=== PATIENT | female | born 1985 | race Caucasian/White ===

== ENCOUNTER 2017-06-25 09:15 | Emergency (ER) | payer BC, OTHER ==
[2017-06-25 10:57] LABS: Basophils % (Auto) 0.5 % (0.0-1.8); Eosinophils # (Auto) 0.1 K/mm3 (0.0-0.4); Eosinophils % (Auto) 1.7 % (0.0-4.3); Hemoglobin 12.6 gm/dl (10.1-14.3); Lymphocytes # (Auto) 1.9 K/mm3 (1.2-5.4); Mean Corpuscular HGB Conc 33 % (30-34); Mean Corpuscular Hemoglobin 28 pg (28-32); Mean Corpuscular Volume 84 fl (79-97); Monocytes # (Auto) 0.6 K/mm3 (0.0-0.8); Monocytes % (Auto) 7.4 % (0.0-7.3); Platelet Count 324 K/mm3 (140-440); Red Blood Count 4.52 M/mm3 (3.65-5.03); Red Cell Distribution Width 14.1 % (13.2-15.2)
[2017-06-25 11:09] LABS: Alanine Aminotransferase 11 units/L (7-56); BUN/Creatinine Ratio 18; Blood Urea Nitrogen 9 mg/dL (7-17); Calcium 9.1 mg/dL (8.4-10.2); Hemolysis Index 2; Lipase 17 units/L (13-60)
[2017-06-25 11:58] LABS: HCG Qualitative,Urine Negative (Negative)
[2017-06-25 12:00] LABS: Bilirubin,Urine NEG (Negative); Blood,Urine SM (Negative); Color,Urine Straw (Yellow); Mucus,Urine FEW /HPF; Protein,Urine <15 mg/dL mg/dL (Negative); Urobilinogen,Urine < 2.0 mg/dL (<2.0)
[2017-06-25 16:03] VITALS: BP 162/99
== END 2017-06-25 20:06 | disposition left against medical advice (07) ==
LOC: ED 09:15
DX: R10.9 Unspecified abdominal pain (principal); Z53.21 Procedure and treatment not carried out due to patient leaving prior to being seen by health care provider
CPT/HCPCS: 36415; 80053; 81001; 81025; 83690; 85025